=== PATIENT | female | born 1970 | race Caucasian/White ===

== ENCOUNTER 2016-07-19 21:12 | Emergency (ER) | payer OTHER ==
[~2016-07-19] VITALS: Ht 170.2 cm; Wt 87.1 kg
[2016-07-19] MEDS ORDERED: NITROGLYCERIN SUBLINGUAL 0.4 MG BOTTLE OF 25. SL PRN (21:30)
[2016-07-19] MEDS ORDERED: MORPHINE SULFATE 4 MG/ML DISP.SYRIN. IV/SQ PRN (21:30)
--- NOTE | 2016-07-19 21:32 | PHYS DOC ---
General Chief Complaint: headache Stated Complaint: NUMB ON LEFT SIDE Time Seen by MD: 21:15 Source: patient, family, EMS Exam Limitations: no limitations Problems: History of Present Illness Initial Comments Pt is 46/F to ED via EMS for EDDY, anxiety, and left arm symptoms. EMS reports pt spouse drove her to EMS station. On arrival EMS reports pt very anxious/hyperventilating and hypertensive, +carpopedal spasms. Pt spouse states that prior to that he and SO were moving into new residence. They were moving a refrigerator, pt had to put her end down due to left hand pain/numbness. Pt appeared fatigued/pale to SO and SO felt pt had left facial droop. He mentioned this to pt, who began to complain of severe EDDY with left face/arm numbness. No weakness, no n/v, no vision changes or other focal neurodeficit. On arrival to EMS station pt brought to ED. On ED arrival 97.8, 64, 158/103, 22, 100% RA Timing/Duration: 1-3 hours Severity: severe Modifying Factors: worse with movement, improves with rest Associated Symptoms: headaches, malaise, nausea/vomiting, weakness Allergies: Coded Allergies: No Known Drug Allergies (Unverified , 07/19/16) Past Medical History Medical History: diabetes, high cholesterol Surgical History: no surgical history Psychosocial History: anxiety, depression Social History Smoker: non-smoker Alcohol: none Drugs: none Review of Systems Constitutional: denies chills, denies diaphoresis, denies fever, malaise Respiratory: denies cough, denies shortness of breath, denies wheezing Cardiovascular: denies chest pain, denies palpitations, denies syncope Gastrointestinal: denies abdominal pain, denies diarrhea, nauseadenies vomiting Genitourinary: denies frequency, denies hematuria, denies pain Musculoskeletal: see HPI Hematologic/Lymphatic: denies blood clots, denies easy bleeding, denies easy bruising Physical Exam General Appearance: moderate distress, obese Eyes: bilateral eye EOMI, bilateral eye PERRL, bilateral eye normal inspection Ear, Nose, Throat: hearing grossly normal, normal ENT inspection, normal pharynx Neck: non-tender, supple Respiratory: normal breath sounds, no respiratory distress Cardiovascular: normal peripheral pulses, regular rate, rhythm Gastrointestinal: non tender, soft Back: no CVA tenderness, no vertebral tenderness Extremities: non-tender, normal inspection Neurologic/Psychiatric: nutritional chemist II-XII nml as tested, no motor/sensory deficits, alert, normal mood/affect, oriented x 3 Skin: normal color, warm/dry Orders, Labs, Meds EKG: sinus arrhythmia 68 bpm, PVC, diffuse flattened T waves no STEMI PATIENT: AKSHAT SHARMA ACCOUNT: [id number] : 1970 LOCATION: ER AGE: 46 SEX: F EXAM STATUS: REG ER ORD. PHYSICIAN: SONI PEREZ DO REASON: EDDY, left side numbness PROCEDURE: CT HEAD WO CONTRAST PROCEDURE CT head without intravenous contrast. HISTORY Headache, nausea, left-sided numbness. TECHNIQUE Axial images are obtained of the head from the skull base through the vertex without IV contrast Exposure: One or more of the following individualized dose reduction techniques were utilized for this examination: 1. Automated exposure control. 2. Adjustment of the mA and/or kV according to patient size. 3. Use of iterative reconstruction technique. COMPARISON None. FINDINGS The ventricles are appropriate in size, shape, and location for the patient's age.No obvious intracranial mass, mass-effect, midline shift, hemorrhage or obvious acute infarction is identified.Basilar cisterns are patent. Bone windows demonstrate no acute calvarial abnormality.The visualized paranasal sinuses appear clear. IMPRESSION No acute intracranial process. Please note that CT can be relatively insensitive to acute ischemic infarction for up to 24 hours after symptom onset. Electronically signed by: Anna Garcia MD (Jul 19, 2016 22:13:02) DICTATED AND SIGNED BY: ANNA GARCIA MD DATE: 07/19/162212 CC: PCP,UNKNOWN; SONI PEREZ DO ~ Chest AP: no acute cardiopulmonary process WBC 12.8, K+ 3.3 (20meq PO), BUN 17, Cr 1.1 Pt asymptomatic since shortly after arrival. I discussed tx plan pt expressed agreement/understanding. Departure Time of Disposition: 00:08 Disposition: 01 HOME, SELF-CARE Diagnosis: UTI, hypokalemia, hypovolemia, tension EDDY, anxiety Condition: IMPROVED Patient Instructions: Dehydration, Adult, [id number]-[id number], Hypokalemia-Brief, Urinary Tract Infection, [id number] Additional Instructions: Rest, no strenuous activity. Aggressive hydration with gatorade, water. Eat one banana twice daily until doctor follow up. Rx: bactrim ds, take with food. OTC tylenol/ibuprofen as needed. Follow up at [facility] in 2-3 days. Return to ED with new or changing symptoms. SONI PEREZ DO Jul 19, 2016 21:32
[2016-07-19 21:36] LABS: BASO # 0.1 x10^3/uL (0.0-0.2); BASO % 1 % (0-3); EOS # 0.1 x10^3/uL (0.0-0.7); EOS % 1 % (0-3); HEMATOCRIT 40.9 % (36.0-47.0); HEMOGLOBIN 14.2 g/dL (12.0-15.5); LYMPH # 6.2 x10^3/uL (1.0-4.8); LYMPH % 49 % (24-48); MEAN CORPUSCULAR HEMOGLOBIN 32 pg (25-35); MEAN CORPUSCULAR HGB CONC 35 g/dL (31-37); MEAN CORPUSCULAR VOLUME 92 fL (79-100); MONO # 1.1 x10^3/uL (0.0-1.1); MONO % 8 % (0-9); NEUT # 5.3 x10^3uL (1.8-7.7); NEUT % 41 % (31-73); PLATELET COUNT 342 x10^3/uL (140-400); RED BLOOD COUNT 4.44 x10^6/uL (3.50-5.40); RED CELL DISTRIBUTION WIDTH 12.4 % (11.5-14.5); WHITE BLOOD COUNT 12.8 x10^3/uL (4.0-11.0)
--- NOTE | 2016-07-19 21:44 | EKG ---
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
[2016-07-19 21:53] LABS: CALCIUM 9.9 mg/dL (8.5-10.1); CREATININE 1.1 mg/dL (0.6-1.0); MAGNESIUM 1.9 mg/dL (1.8-2.4); POTASSIUM 3.3 mmol/L (3.5-5.1)
[2016-07-19] MEDS ORDERED: ONDANSETRON PF 4 MG/2 ML VIAL. IV ONE (22:00)
[2016-07-19] MEDS ORDERED: LORazepam 2 MG/ML VIAL IV ONE (22:00)
[2016-07-19] MEDS ORDERED: ASPIRIN 81 MG TAB.CHEW PO ONE (22:00)
--- NOTE | 2016-07-19 22:13 | RAD ---
PROCEDURE CT head without intravenous contrast. HISTORY Headache, nausea, left-sided numbness. TECHNIQUE Axial images are obtained of the head from the skull base through the vertex without IV contrast Exposure: One or more of the following individualized dose reduction techniques were utilized for this examination: 1. Automated exposure control. 2. Adjustment of the mA and/or kV according to patient size. 3. Use of iterative reconstruction technique. COMPARISON None. FINDINGS The ventricles are appropriate in size, shape, and location for the patient's age.No obvious intracranial mass, mass-effect, midline shift, hemorrhage or obvious acute infarction is identified.Basilar cisterns are patent. Bone windows demonstrate no acute calvarial abnormality.The visualized paranasal sinuses appear clear. IMPRESSION No acute intracranial process. Please note that CT can be relatively insensitive to acute ischemic infarction for up to 24 hours after symptom onset. Electronically signed by: Ravinder De Dios MD (Jul 19, 2016 22:13:02)
[2016-07-19] MEDS ORDERED: POTASSIUM CHLORIDE 20 MEQ TABLET.ER. PO ONE (22:30)
[2016-07-19] MEDS ORDERED: IV NORMAL SALINE 1,000ML 1,000 ML IV SCH (22:30)
[2016-07-19 23:18] VITALS: BP 129/73
[2016-07-19 23:21] LABS: BILIRUBIN,URINE NEG (NEG); CLARITY,URINE HAZY; COLOR,URINE YELLOW; GLUCOSE,URINE NEG (NEG); NITRITE,URINE NEG (NEG); UROBILINOGEN,URINE 1 mg/dL (0.2 mg/dL)
[2016-07-19 23:22] LABS: BACTERIA,URINE FEW /HPF (0-FEW); BARBITURATES NEG (NEG); BENZODIAZEPINES NEG (NEG); CANNABINOIDS NEG (NEG); COCAINE NEG (NEG); METHADONE NEG (NEG); OPIATES POS (NEG); PHENCYCLIDINE NEG (NEG); SQUAMOUS EPITHELIAL CELL,UR FEW /LPF
[2016-07-19 23:24] LABS: AMPHETAMINE/METHAMPHETAMINE NEG (NEG)
[2016-07-20] MEDS ORDERED: SULF1TAB24 PO (00:10)
--- NOTE | 2016-07-20 08:38 | RAD ---
Portable AP upright view CXR: Comparison: None available. Clinical indications: Headache. Nausea. Shortness of air. Numbness in the left arm and foot.. Findings: No acute lung infiltrate or pleural effusion or pulmonary edema or lung mass or pneumothorax is seen. The heart size, pulmonary vasculature, mediastinum and both mauro are unremarkable. Impression: No acute radiographic abnormality is seen.
== END 2016-07-20 00:22 | disposition home or self-care (01) ==
LOC: ER 21:12
DX: R51 Headache (principal); N39.0 Urinary tract infection, site not specified; E86.1 Hypovolemia; E87.6 Hypokalemia; F41.9 Anxiety disorder, unspecified; I10 Essential (primary) hypertension; E78.00 Pure hypercholesterolemia, unspecified; E11.9 Type 2 diabetes mellitus without complications
CPT/HCPCS: 36415; 70450; 71010; 80048; 80305; 81001; 82550; 83690; 83735; 83880; 84484; 85027; 87086; 93005; 96361; 96374; 96375; 99285; J2060; J2270; J2405; G0481; J7030